=== PATIENT | female | born 1985 | race African-American/Black ===

== ENCOUNTER 2022-12-31 19:04 | Emergency (ER) | payer OTHER, SELFPAY ==
[2022-12-31 19:14] VITALS: BP 120/69; PULSE 102; RESP 18; TEMP 36.4; O2SAT 100
--- NOTE | 2022-12-31 19:44 | ED.GENADULT ---
HPI - General Adult General Chief complaint: Unspecified Stated complaint: hair falling out Time Seen by Provider: 12/31/22 19:18 History of Present Illness HPI narrative: Patient is a 37-year-old female here for evaluation of hair loss x6 months. States that her hair is falling out in clumps but has worsened over the past week or so. She denies any systemic symptoms. She does not have a primary care doctor. Has not been recently. No new medicines, shampoos. Took biotin pills without success. Related Data Allergies Allergy/AdvReac Type Severity Reaction Status Date / Time No Known Allergies Allergy Verified 12/31/22 19:25 Review of Systems Review of Systems: Gen.: Denies fevers or chills Eyes: Denies eye pain or visual change ENT: Denies congestion Respiratory: Denies shortness of breath or cough CV: Denies chest pain or palpitations GI: Denies abdominal pain nausea, emesis or diarrhea denies burning, urgency, frequency or hematuria Musculoskeletal: Denies back pain or muscle pain Neuro: Denies numbness, tingling, weakness or focal weakness Skin: Reports hair loss Except as documented, all other systems reviewed and negative Exam Narrative: Gen: Alert, oriented, no acute distress Eyes: EOMI, no icterus Pulm: Respirations even and unlabored, symmetric thorax expansion, no audible stridor or visible cyanosis CV: Regular rate per telemetry GI: No distension, no voluntary/involuntary guarding Neuro: AOx4, moves all extremities without apparent difficulty or weakness, follows commands Skin: When grasping a clump of hair about 5 to 6 hairs pull out with gentle pressure. No lesions to scalp. Psych: Normal mood/affect, insight/judgement good, adequate fund of knowledge, recent/remote memory intact Course Vital Signs Vital signs: Vital Signs Temperature 97.6 F 12/31/22 19:14 Pulse Rate 102 H 12/31/22 19:14 Respiratory Rate 18 12/31/22 19:14 Blood Pressure 120/69 12/31/22 19:14 Pulse Oximetry 100 12/31/22 19:14 Oxygen Delivery Room Air 12/31/22 19:14 Temperature 97.6 F 12/31/22 19:14 Pulse Rate 102 H 12/31/22 19:14 Respiratory Rate 18 12/31/22 19:14 Blood Pressure 120/69 12/31/22 19:14 Pulse Oximetry 100 12/31/22 19:14 Oxygen Delivery Room Air 12/31/22 19:14 Medical Decision Making MDM Narrative Medical decision making narrative: 37-year-old female here for evaluation of diffuse hair loss x6 months. Hair pull test is positive. Will Rx topical minoxidil and provided with Derm follow-up. No systemic symptoms to suggest acute illness or need for labs. Vital Signs Vital Signs: Vital Signs Temperature 97.6 F 12/31/22 19:14 Pulse Rate 102 H 12/31/22 19:14 Respiratory Rate 18 12/31/22 19:14 Blood Pressure 120/69 12/31/22 19:14 Pulse Oximetry 100 12/31/22 19:14 Oxygen Delivery Room Air 12/31/22 19:14 Temperature 97.6 F 12/31/22 19:14 Pulse Rate 102 H 12/31/22 19:14 Respiratory Rate 18 12/31/22 19:14 Blood Pressure 120/69 12/31/22 19:14 Pulse Oximetry 100 12/31/22 19:14 Oxygen Delivery Room Air 12/31/22 19:14 Discharge Plan Discharge Clinical Impression: Hair loss Patient Disposition: Home, Self-Care Condition: Stable Instructions: Antibiotic Form, Alopecia (DC) Additional Instructions: You may use the minoxidil daily, massage this into the scalp and wash after application. Apply this at least 2 hours before bed and allow time for drying. This will take at least 4 months to exhibit effect, please follow-up with the biller for further evaluation of your hair loss at [phone]. Prescriptions: New minoxidil 5 % foam 1 ea topical DAILY Qty: 60 0RF Follow-up/Referrals: PHYSICIAN NOT ON STAFF,NONSTAFF [Primary Care Provider] -
[2022-12-31 20:08] VITALS: BP 124/78; PULSE 84; RESP 15; O2SAT 100
== END 2022-12-31 20:10 | disposition home or self-care (01) ==
PROVIDERS: Emergency Provider Physician Assistant
DX: L65.9 Nonscarring hair loss, unspecified (principal)
CPT/HCPCS: 99283

== ENCOUNTER 2023-07-12 09:02 | Emergency (ER) | payer SELFPAY ==
--- NOTE | ~2023-07-12 | XR_ITS ---
XR chest 1V portable DATE: 07/12/2023 11:38 INDICATION: Chest congestion and pain, cough TECHNIQUE: Portable upright AP chest on 07/12/2023 at 1129 hours COMPARISON: None FINDINGS: Normal heart size. No hilar or mediastinal enlargement. No pulmonary infiltrate or consolid ation, pleural effusion or pulmonary vascular congestion or pneumothorax. Mild thoracic dextroscolios is. IMPRESSION: No active cardiopulmonary disease Reviewed, dictated and finalized at location [facility]. [facility]
[2023-07-12 09:17] VITALS: BP 132/86; PULSE 70; RESP 16; TEMP 37.1; O2SAT 97
--- NOTE | 2023-07-12 11:00 | ED.GENADULT ---
HPI - General Adult General Chief complaint: Unspecified Stated complaint: flu like s/s Time Seen by Provider: 07/12/23 11:00 Source: patient Mode of arrival: ambulatory Limitations: no limitations History of Present Illness HPI narrative: Patient is a 37-year-old female with complaints of flu-like illness x2 days. She reports she is having some chest congestion, sinus pressure, cough with yellow phlegm production, sore throat, and chest discomfort with coughing. She denies any shortness of breath or chest pain otherwise. No known fever. Related Data Home Medications Medication Instructions Recorded Confirmed No Home Medications 07/12/23 07/12/23 Allergies Allergy/AdvReac Type Severity Reaction Status Date / Time No Known Allergies Allergy Verified 07/12/23 10:52 Review of Systems Review of Systems: Pertinent positives per HPI. Patient denies any fever, chills, rash, headache, visual changes, dizziness, cough, runny nose, sore throat, shortness of breath, chest pain, palpitations, nausea, vomiting, diarrhea, constipation, abdominal pain, or any urinary issues. PMFSH Comments At the time of my signature, I reviewed and agree with the nursing past medical, surgical, social, and family history. There is no relevant family history pertinent to the patient complaint. Exam Narrative: General: Well-developed, well nourished, in no apparent distress Head: Normocephalic, atraumatic Eyes: Pupils equally round and reactive to light bilaterally, EOM intact, sclera and conjunctive clear, no discharge, lids normal Ears: TMs intact and clear, ear canals clear, no drainage, grossly hearing normal. Nose: Nares patent, clear nasal discharge, mild inflammation, no sinus tenderness. Mouth: Oropharynx red without lesions or masses, good dentition, MMM. Neck: Supple, trachea midline, no enlargement of anterior or posterior cervical nodes, no thyroid masses or goiter palpable. Cardio: Regular rate and rhythm, s1 and s2 normal, no murmur appreciated. Resp: Clear to auscultation bilaterally anteriorly and posteriorly, no rhonchi, rales, wheezing or rubs Course Course Emergency Course: Portions of this record may have been created with voice recognition software. Vital Signs Vital signs: Vital Signs Temperature 37.1 C 07/12/23 09:17 Pulse Rate 70 07/12/23 09:17 Respiratory Rate 16 07/12/23 09:17 Blood Pressure 132/86 07/12/23 09:17 Pulse Oximetry 97 07/12/23 09:17 Temperature 37.1 C 07/12/23 09:17 Pulse Rate 62 07/12/23 12:12 Respiratory Rate 18 07/12/23 12:12 Blood Pressure 142/87 H 07/12/23 12:12 Pulse Oximetry 100 07/12/23 12:14 Oxygen Delivery Room Air 07/12/23 12:14 Vital signs reviewed Medical Decision Making MDM Narrative Medical decision making narrative: At the time of visit patient is resting comfortably on the exam table. Patient appears to be nontoxic. Lab: COVID, influenza, RSV, and strep test were all negative and the ER today. Chest xray: Negative for any acute cardiopulmonary process Plan: I suspect patient has URI with cough and congestion/viral syndrome. Supportive measures were discussed with the patient and they voiced understanding discharge instructions and agrees to treatment plan. Return precautions reviewed Differential Diagnosis Differential Diagnosis: URI, influenza, strep, pneumonia, COVID, RSV, viral syndrome Vital Signs Vital Signs: Vital Signs Temperature 37.1 C 07/12/23 09:17 Pulse Rate 70 07/12/23 09:17 Respiratory Rate 16 07/12/23 09:17 Blood Pressure 132/86 07/12/23 09:17 Pulse Oximetry 97 07/12/23 09:17 Temperature 37.1 C 07/12/23 09:17 Pulse Rate 62 07/12/23 12:12 Respiratory Rate 18 07/12/23 12:12 Blood Pressure 142/87 H 07/12/23 12:12 Pulse Oximetry 100 07/12/23 12:14 Oxygen Delivery Room Air 07/12/23 12:14 Lab Data Labs: Lab Results 07/12/23 Range/Uni
[2023-07-12 11:49] LABS: Strep Group A RT-PCR NOT DETECTED (Negative)
[2023-07-12 12:00] LABS: Influenza A QL RT-PCR Negative (Negative); Influenza B QL RT-PCR Negative (Negative); RSV RNA, RT-PCR Negative (Negative); SARS-CoV-2 RNA PCR Negative (Negative)
[2023-07-12 12:12] VITALS: BP 142/87; PULSE 62; RESP 18; O2SAT 100
[2023-07-12 12:14] VITALS: O2SAT 100
== END 2023-07-12 12:14 | disposition home or self-care (01) ==
PROVIDERS: Emergency Medicine; Emergency Provider Nurse Practitioner Family
DX: B34.9 Viral infection, unspecified (principal); Z20.822 Contact with and (suspected) exposure to COVID-19
CPT/HCPCS: 71045; 87637; 87651; 99283

== ENCOUNTER 2023-09-01 09:15 | Emergency (ER) | payer SELFPAY ==
--- NOTE | 2023-09-01 09:16 | ECG_ITS ---
Measurements Intervals [place] [facility] Rate: 73 P: 62 HI: 171 QRS: 65 QRSD: 93 T: 30 QT: 374 QTc: 415 Interpretive Statements SINUS RHYTHM NONSPECIFIC ST & T-WAVE ABNORMALITY NO PREVIOUS ECG AVAILABLE FOR COMPARISON Electronically Signed On 09-01-2023 13:25:41 [employer] by Jan Aquino M.D.
[2023-09-01 09:32] VITALS: BP 123/92; PULSE 77; RESP 16; TEMP 36.6; O2SAT 100
--- NOTE | 2023-09-01 09:37 | ED.GENADULT ---
HPI - General Adult General Chief complaint: Chest Pain Stated complaint: CHest pain Time Seen by Provider: 09/01/23 09:19 Source: patient Mode of arrival: ambulatory Limitations: no limitations History of Present Illness HPI narrative: This is a 37-year-old female who is otherwise healthy presents to the ED for chief complaint of intermittent chest pain that began last night. Reports the pain is in the the central substernal area. It does not radiate. Denies any associated shortness of breath, syncope, vomiting, nausea or significant abdominal pain. Denies fevers, chills, cough, palpitations or leg swelling. Does state that she has some laryngitis last week but otherwise has been feeling fine. Denies any cardiac history. Denies recent travel, hospitalization, immobilization, history of blood clot. Additional complaints of nosebleed this started last night but has since resolved. Related Data Home Medications Medication Instructions Recorded Confirmed No Home Medications 07/12/23 07/12/23 Allergies Allergy/AdvReac Type Severity Reaction Status Date / Time No Known Allergies Allergy Verified 09/01/23 10:24 Review of Systems Review of Systems: All systems as dictated in HPI Exam Narrative: GENERAL: Well-appearing, well-nourished, and in no acute distress. HEAD: Normocephalic, atraumatic. EYES: PERRLA and EOMI. ENT: Nares clear, no rhinorrhea or epistaxis. Mucous membranes moist. Oropharynx without tonsillar hypertrophy exudate or other lesions. NECK: Supple. No adenopathy or masses. CHEST: No respiratory distress. Clear to auscultation. No wheezes rales or rhonchi. No tenderness. Elicited chest pain with leaning forward for respiratory exam HEART: Regular rate and rhythm. No murmur heard. Normal peripheral pulses. ABDOMEN: Soft, nontender, nondistended, normal active bowel sounds. MSK: Normal range of motion. No edema. SKIN: Warm, dry, no rash. NEURO: Alert and oriented x3. No focal deficits. PSYCH: Normal mood and affect. Course Course Emergency Course: Notified by x-ray tech and nursing staff the patient is refusing evaluation. She is refusing x-ray and lab work due to the cost. Patient states that she just wants a COVID test. I explained in detail to the patient that I cannot fully evaluate chest pain without laboratory, imaging studies an EKG. She is fully understanding that this complaint of chest pain cannot be evaluated with her refusing these tests and the risks posed due to this. She confirms that she only wants a COVID test today. Vital Signs Vital signs: Vital Signs Temperature 97.9 F 09/01/23 09:32 Pulse Rate 77 09/01/23 09:32 Respiratory Rate 16 09/01/23 09:32 Blood Pressure 123/92 H 09/01/23 09:32 Pulse Oximetry 100 09/01/23 09:32 Oxygen Delivery Room Air 09/01/23 09:32 Temperature 97.9 F 09/01/23 09:32 Pulse Rate 75 09/01/23 11:50 Respiratory Rate 16 09/01/23 11:50 Blood Pressure 140/97 H 09/01/23 11:50 Pulse Oximetry 98 09/01/23 11:50 Oxygen Delivery Room Air 09/01/23 09:45 Medical Decision Making MDM Narrative Medical decision making narrative: This is a 37-year-old female who presents to the ED with chief complaint of central chest pain. Vitals are normal. Exam is benign. EKG shows normal sinus rhythm. Upon initiating workup for chest pain, patient is refusing any further laboratory or imaging studies. Thoroughly explained that I cannot evaluate chest pain without this test. She verbalizes understanding and repeats that she just wants a COVID test today. COVID test negative. Pt will be discharged in stable condition. Return precautions given and supportive measures discussed. Pt is understanding and agreeable with plan for discharge and follow-up with PCP. Vital Signs Vital Signs: Vital Signs Temperature 97.9 F 09/01/23 09:32 Pulse Rate 77 09/01/23 09:32 Respiratory Rate 16 09/01/23 09:32 Blood Pre
[2023-09-01 09:47] LABS: Basophils Percent Auto 0.7 % (0.2-1.2); Eosinophils Absolute Auto 0.1 K/mm3 (0-0.3); Eosinophils Percent Auto 1.8 % (0-4.4); Hematocrit 39.3 % (37.0-47.0); Hemoglobin 12.7 g/dL (12.0-15.0); Immature Granulocyte Absolute 0.01 K/mm3 (0.00-0.031); Immature Granulocyte Percent A 0.2 % (0-0.5); Lymphocytes Absolute Auto 1.91 K/mm3 (0.9-3.2); Lymphocytes Percent Auto 41.9 % (18.3-44.2); Mean Corpuscular HGB Conc 32.3 g/dl (32-36); Mean Platelet Volume 11.9 fl (7.4-10.4); Monocytes Absolute Auto 0.3 K/mm3 (0.1-0.6); Monocytes Percent Auto 7.5 % (2.6-8.5); Neutrophils Absolute Auto 2.2 K/mm3 (1.3-6.7); Neutrophils Percent Auto 47.9 % (45.5-73.1); Platelet Count Result 215 k/mm3 (150-375); Red Blood Count 3.97 M/mm3 (4.2-5.4); Red Cell Distribution Width 13.9 % (11.5-14.5); White Blood Count 4.6 K/mm3 (4.5-10.0)
[2023-09-01 10:01] VITALS: BP 123/91; PULSE 75; RESP 15; O2SAT 100
[2023-09-01 11:27] LABS: Influenza A QL RT-PCR Negative (Negative); Influenza B QL RT-PCR Negative (Negative); RSV RNA, RT-PCR Negative (Negative); SARS-CoV-2 RNA PCR Negative (Negative)
[2023-09-01 11:50] VITALS: BP 140/97; PULSE 75; RESP 16; O2SAT 98
== END 2023-09-01 11:50 | disposition home or self-care (01) ==
PROVIDERS: Emergency Medicine; Emergency Provider Physician Assistant
DX: R07.2 Precordial pain (principal); Z20.822 Contact with and (suspected) exposure to COVID-19; R94.31 Abnormal electrocardiogram [ECG] [EKG]
CPT/HCPCS: 36415; 85025; 87637; 93005; 99284